=== PATIENT | female | born 1965 | race Two or more races ===

== ENCOUNTER 2019-01-16 18:14 | Emergency (ER) | payer OTHER ==
[2019-01-16 18:21] VITALS: TEMP 98.5; BMI 32.5
[2019-01-16] MEDS ORDERED: SODIUM CHLORIDE 1,000 ML IV ONE (19:55)
--- NOTE | 2019-01-16 20:02 | PDOC ---
History of Present Illness - General Chief Complaint: Lightheaded Stated Complaint: DIZZINESS Time Seen by Provider: 01/16/19 19:27 History Source: Patient Exam Limitations: Language Barrier ([employer] #[id number]) - History of Present Illness Initial Comments: 01/16/19 19:58 HISTORY OF PRESENT ILLNESS: 53-year-old woman past medical history of vertigo presents emergency department for evaluation of room spinning dizziness over the past "months." Patient reports she was seen at [facility] 01/05 and was discharged with prescription for meclizine. She reports meclizine was help controlling her vertigo but when she followed up with her ENT specialist on 01/13 she was told to stop taking the meclizine. Patient reports the dizziness has gotten worse and she ceased the meclizine. Patient also reports now having chest pain for the past 13 days which she describes as an "achy pressure." She denies any shortness of breath or radiation of the pain. Patient did not tell her ENT specialist or the doctors at [facility] when she was evaluated. Patient denies fevers, chills, shortness of breath, abdominal pain, nausea or vomiting. No recent travel or sick contacts. PAST MEDICAL HISTORY: Vertigo SURGICAL HISTORY: Denies ALLERGIES: Shellfish; No known drug allergies REVIEW OF SYSTEMS General/Constitutional: Denies fever or chills. Denies weakness, weight change. HEENT: Denies change in vision. Denies ear pain or discharge. Denies sore throat. Cardiovascular: see HPI Respiratory: Denies cough, wheezing, or hemoptysis. Gastrointestinal: Denies nausea, vomiting, diarrhea or constipation. Denies rectal bleeding. Genitourinary: Denies dysuria, frequency, or change in urination. Musculoskeletal: Denies joint or muscle swelling or pain. Denies neck or back pain. Skin and breasts: Denies rash or easy bruising. Neurologic: See HPI Psychiatric: Denies depression or anxiety. Endocrine: Denies increased thirst. Denies abnormal weight change. Hematologic/Lymphatic: Denies anemia, easy bleeding, or history of blood clots. Allergic/Immunologic: Denies hives or skin allergy. Denies latex allergy. PHYSICAL EXAM General Appearance: Well-appearing, appropriately dressed. No apparent distress , no intoxication. HEENT: EOMI, PERRLA, normal ENT inspection, normal voice, TMs normal, pharynx normal. No conjunctival pallor. No photophobia, scleral icterus. Neck: Supple. Trachea midline. No tenderness, rigidity, carotid bruit, stridor , lymphadenopathy, or thyromegaly. Respiratory/Chest: Lungs CTAB. No shortness of breath, chest tenderness, respiratory distress, accessory muscle use. No crackles, rales, rhonchi, stridor , wheezing, dullness Cardiovascular: RRR. S1, S2. No JVD, murmur, bradycardia, tachycardia. Vascular Pulses: Dorsalis-Pedis (R): 2+, Dorsalis-Pedis (L): 2+ Gastrointestinal/Abdominal: Normal bowel sounds. Abdomen soft, non-distended. No tenderness or rebound tenderness. No organomegaly, pulsatile mass, guarding, hernia, hepatomegaly, splenomegaly. Lymphatic: No adenopathy, tenderness. Musculoskeletal/Extremities: Normal inspection. FROM of all extremities, normal capillary refill. Pelvis Stable. No CVA tenderness. No tenderness to extremities, pedal edema, swelling, erythema or deformity. Integumentary: Appropriate color, dry, warm. No cyanosis, erythema, jaundice or rash Neurologic: physician ophthalmologist II-XII intact. Fully oriented, alert. Appropriate mood/affect. Motor strength 5/5. No appreciable EOM palsy, facial droop or sensory deficit. No nystagmus present. Gait steady. Past History - Past Medical History Allergies/Adverse Reactions: Allergies Allergy/AdvReac Type Severity Reaction Status Date / Time No Known Allergies Allergy Verified 01/16/19 18:21 Home Medications: Ambulatory Orders NK [No Known Home Medication] 01/16/19 COPD: No Disorders: No - Surgical History Cardiac Surgery: No Lung Surgery: No - Immunization History Immunization Up to Date: No - Suicide/Smoking/Psychosocial Hx Smoking History: Never smoked Have you smoked in the past 12 months: No Information on smoking cessation initiated: No Hx Alcohol Use: No Drug/Substance Use Hx: No *Physical Exam - Vital Signs Last Vital Signs Temp Pulse Resp BP Pulse Ox 98.5 F 77 16 169/63 99 01/16/19 18:18 01/16/19 18:18 01/16/19 18:18 01/16/19 18:18 01/16/19 18:18 ED Treatment Course - LABORATORY CBC & Chemistry Diagram: 01/16/19 20:39 01/16/19 20:39 Medical Decision Making - Medical Decision Making 01/16/19 20:02 A/P: 53-year-old woman with chest pain and vertigo Differential diagnosis includes but is not limited to vertigo, ACS, arrhythmia, ICH, occult infection Labs including cardiac profile CT of the head without contrast EKG Chest x-ray Normal saline 1 L bolus Valium 1 mg IV push now Reassess 01/17/19 00:02 CT chest read by imaging motion picture camera lens technician: No intracranial hemorrhages, instructional fluid collections or intra-axial mass lesion. Laboratory testing is unremarkable with an initial troponin of less than 0.02. EKG reviewed by me as interpreted by Dr. Apodaca: Sinus rhythm with rate of 76. NE - 148 ms, QRS 110 ms, QTC 490 ms. No T-wave inversions, ST elevations or ST depressions noted. Patient reports dizziness is improved after receiving IV fluids and Ativan. 01/17/19 01:57 Chest x-rays read by me: Angles clear. Cardiac silhouette is within normal limits. No focal infiltrations or consolidations present. I will discharge the patient home to follow-up with her ENT specialist for continued evaluation of her vertigo. Patient is to follow-up with her primary doctor for reevaluation of chest pain. *DC/Admit/Observation/Transfer Diagnosis at time of Disposition: Vertigo, Atypical chest pain - Discharge Dispostion Disposition: HOME Condition at time of disposition: Stable Decision to Admit order: No - Referrals Referrals: Jennifer Gibson A [Primary Care Provider] - - Patient Instructions Additional Instructions: Drink plenty of fluids. Follow-up with her ENT specialist for reevaluation of vertigo. Make an appointment with her primary doctor for reevaluation of your chest pain. Return to the emergency department for any new or worsening symptoms. Thank you very much for choosing us to provide your emergent health care needs. Beber mucho lquido. Perfecto un seguimiento con whelan especialista en ORL para la reevaluacin del vrtigo. Perfecto donte bari con whelan mdico de cabecera para reevaluar el dolor de pecho. Regrese al departamento de emergencias para cualquier sntoma nuevo o que empeore. Muchas wander por elegirnos para satisfacer jannette necesidades de atencin mdica de emergencia. - Post Discharge Activity
[2019-01-16] MEDS ORDERED: LORazepam 2 MG/ML SDV VIAL ONE (20:52)
[2019-01-16 20:55] LABS: BASO % 0.3 % (0-2.0); EOS % 0.2 % (0-4.5); HEMATOCRIT 41.1 % (32.4-45.2); HEMOGLOBIN 14.1 GM/dL (10.7-15.3); LYMPH % 30.6 % (8-40); MCHC 34.4 g/dl (32.0-36.0); MEAN CELL VOLUME 90.1 fl (80-96); MONO % 6.3 % (3.8-10.2); NEUT % 62.6 % (42.8-82.8); PLATELET COUNT 219 K/MM3 (134-434); RBC 4.55 M/mm3 (3.60-5.2)
[2019-01-16 21:40] LABS: ALBUMIN 4.2 g/dl (3.4-5.0); ALK PHOS 86 U/L (45-117); ANION GAP 5 MMOL/L (8-16); BILIRUBIN,TOTAL 0.3 mg/dL (0.2-1); BLOOD UREA NITROGEN 7 mg/dL (7-18); CALCIUM 9.2 mg/dL (8.5-10.1); CHLORIDE 107 mmol/L (98-107); CO2 29 mmol/L (21-32); CREATININE 0.5 mg/dL (0.55-1.3); GLUCOSE,RANDOM 99 mg/dL (74-106); POTASSIUM 4.8 mmol/L (3.5-5.1); SGOT/AST 48 U/L (15-37); SGPT/ALT 55 U/L (13-61); SODIUM 140 mmol/L (136-145); TOT PROT 7.7 g/dl (6.4-8.2)
[2019-01-16 22:03] LABS: INR 1.05 (0.83-1.09); PROTHROMBIN TIME (PATIENT) 12.4 SEC (9.7-13.0)
--- NOTE | 2019-01-17 00:35 | PDOC ---
*Physical Exam - Vital Signs Last Vital Signs Temp Pulse Resp BP Pulse Ox 98.5 F 77 16 169/63 99 01/16/19 18:18 01/16/19 18:18 01/16/19 18:18 01/16/19 18:18 01/16/19 18:18 ED Treatment Course - LABORATORY CBC & Chemistry Diagram: 01/16/19 20:39 01/16/19 20:39 - ADDITIONAL ORDERS Additional order review: Laboratory Results 01/16/19 01/16/19 20:39 20:39 PT with INR 12.40 INR 1.05 Sodium 140 Potassium 4.8 Chloride 107 Carbon Dioxide 29 Anion Gap 5 L BUN 7 Creatinine 0.5 L Creat Clearance w eGFR 130.08 Random Glucose 99 Calcium 9.2 Total Bilirubin 0.3 AST 48 H ALT 55 Alkaline Phosphatase 86 Creatine Kinase 161 Creatine Kinase Index 0.6 CK-MB (CK-2) < 1.0 Troponin I < 0.02 Total Protein 7.7 Albumin 4.2 01/16/19 20:39 RBC 4.55 MCV 90.1 MCHC 34.4 RDW 13.0 MPV 8.0 Neutrophils % 62.6 Lymphocytes % 30.6 Monocytes % 6.3 Eosinophils % 0.2 Basophils % 0.3 - Medications Given in the ED: ED Medications Discontinued Medications Generic Name Dose Route Start Last Admin Trade Name Freq PRN Reason Stop Dose Admin Sodium Chloride 1,000 mls @ 1,000 mls/hr 01/16/19 19:55 01/16/19 20:59 Normal Saline - IV 01/16/19 20:54 1,000 mls/hr .Q1H ONE Administration Lorazepam 1 mg 01/16/19 19:57 01/16/19 21:00 Ativan Injection - IVPUSH 01/16/19 19:58 1 mg ONCE ONE Administration Medical Decision Making - Medical Decision Making 01/17/19 00:34 Case discussed with ASIA Jimenez Agree with assessment and plan *DC/Admit/Observation/Transfer Diagnosis at time of Disposition: Vertigo - Discharge Dispostion Condition at time of disposition: Stable - Referrals Referrals: Jennifer Gibson [Primary Care Provider] - - Patient Instructions - Post Discharge Activity
[2019-01-17 02:11] VITALS: BP 156/72; PULSE 76
--- NOTE | 2019-01-17 10:39 | EKG ---
Test Reason : Blood Pressure : / mmHG Vent. Rate : 076 BPM Atrial Rate : 076 BPM P-R Int : 148 ms QRS Dur : 110 ms QT Int : 436 ms P-R-T Axes : 051 033 070 degrees QTc Int : 490 ms NORMAL SINUS RHYTHM PROLONGED QT ABNORMAL ECG NO PREVIOUS ECGS AVAILABLE Confirmed by SOCORRO RYDER MD ([id number]) on 01/17/2019 10:39:17 AM Referred By: Confirmed By:SOCORRO RYDER MD
== END 2019-01-17 02:11 | disposition home or self-care (01) ==
LOC: JER 18:14
PROC: 3E0337Z Introduction of Electrolytic and Water Balance Substance into Peripheral Vein, Percutaneous Approach (ICD-10-PCS; principal; 2019-01-16)
PROC: 3E033NZ Introduction of Analgesics, Hypnotics, Sedatives into Peripheral Vein, Percutaneous Approach (ICD-10-PCS; 2019-01-16)
DX: R07.89 Other chest pain (principal); R42 Dizziness and giddiness
CPT/HCPCS: 36415; 70450-TC; 71046-TC-FY; 80053; 82550; 82553; 84484; 85025; 85610; 87086; 93005; 93010; 99282-25; J7030

== ENCOUNTER 2019-01-24 13:34 | Observation (INO) | payer OTHER ==
[2019-01-24 13:42] VITALS: BMI 32.5
--- NOTE | 2019-01-24 16:00 | PDOC ---
History of Present Illness - General Chief Complaint: Chest Pain Stated Complaint: CHEST PAIN History Source: Patient Exam Limitations: No Limitations - History of Present Illness Initial Comments: 53 yo F with a hx of vertigo and anemia presents to the emergency department with chest pain that began at 12 pm suddenly today. Per the patient, she has never had anything like this before. Per the patient, the pain is described as the following: sharp/burning, 10/10, radiates throughout the chest wall, constant. Endorses the following symptoms: nausea (denies vomiting), headache, weakness, SOB, and dizziness (room spinning sensation). Her chest pain did not marli with motrin use and worsenings with exertion and relieves with rest. Denies familial cardiac history and hx of smoking. Denies hx of stress test and echo. Shx: None Allergies: NKDA Meds: Meclizine Social: Denies tobacco, alcohol, and substance abuse. Past History - Past Medical History Allergies/Adverse Reactions: Allergies Allergy/AdvReac Type Severity Reaction Status Date / Time No Known Allergies Allergy Verified 01/16/19 18:21 Home Medications: Ambulatory Orders NK [No Known Home Medication] 01/16/19 COPD: No Disorders: No Other medical history: VERTIGO - Surgical History Cardiac Surgery: No Lung Surgery: No - Immunization History Immunization Up to Date: No - Suicide/Smoking/Psychosocial Hx Smoking History: Never smoked Have you smoked in the past 12 months: No Hx Alcohol Use: No Drug/Substance Use Hx: No Review of Systems - Review of Systems Able to Perform ROS?: Yes Is the patient limited Macedonian proficient: No Constitutional: No: Chills, Diaphoresis, Fever HEENTM: Yes: Blurred Vision. No: Eye Pain, Recent change in vision, Ear Pain, Nose Pain, Throat Pain, Mouth Pain Respiratory: Yes: Shortness of Breath. No: Cough, SOB with Exertion, Hemoptysis Cardiac (ROS): Yes: Chest Pain. No: Lightheadedness, Palpitations, Syncope ABD/GI: Yes: Nausea. No: Constipated, Diarrhea, Poor Appetite, Poor Fluid Intake, Rectal Bleeding, Vomiting, Tarry Stools : No: Burning, Dysuria, Hematuria, Incontinence Musculoskeletal: No: Back Pain, Joint Pain, Neck Pain Integumentary: No: Bruising, Erythema, Sweating Neurological: Yes: Headache, Dizziness. No: Numbness, Tingling, Tremors Psychiatric: No: Change in Appetite Endocrine: No: Unexplained Weight Gain Hematologic/Lymphatic: Yes: Anemia *Physical Exam - Vital Signs Last Vital Signs Temp Pulse Resp BP Pulse Ox 98.2 F 84 18 183/81 H 99 01/24/19 13:39 01/24/19 13:39 01/24/19 13:39 01/24/19 13:39 01/24/19 13:39 - Physical Exam General Appearance: Yes: Nourished, Appropriately Dressed, Obese. No: Apparent Distress, Intoxicated HEENT: positive: EOMI, ARUN, Normal Voice, Symmetrical, Pharynx Normal, Hearing Grossly Normal. negative: Pale Conjunctivae, Scleral Icterus (R), Scleral Icterus (L), Muffled/Hoarse voice, Pharyngeal Erythema, Tonsillar Exudate, Tonsillar Erythema, Excessive drooling Neck: positive: Trachea midline, Supple. negative: Tender, Lymphadenopathy (R) , Lymphadenopathy (L), Tender lateral, Tender midline Respiratory/Chest: positive: Chest Tender (sternal), Lungs Clear, Normal Breath Sounds. negative: Respiratory Distress, Accessory Muscle Use, Crackles, Rales, Rhonchi, Stridor, Wheezing, Hyperresonant Cardiovascular: positive: Regular Rhythm, Regular Rate, S1, S2. negative: Systolic Murmur Gastrointestinal/Abdominal: positive: Normal Bowel Sounds, Flat, Soft. negative : Tender, Distended, Guarding, Rebound Lymphatic: negative: Adenopathy Musculoskeletal: positive: Normal Inspection. negative: CVA Tenderness, Vertebral Tenderness Extremity: positive: Normal Capillary Refill, Normal Inspection, Normal Range of Motion. negative: Tender, Swelling, Calf Tenderness Integumentary: positive: Normal Color, Dry, Warm Neurologic: positive: Fully Oriented, Alert, Normal Mood/Affect, Normal Response , Motor Strength 5/5. negative: pegger dobby looms II-XII NML intact (asymmetric smile), Sensory Deficit Heart Score/ECG Review - History History: Moderately suspicious - Electrocardiogram EKG: Normal - Age Age: 45-65 - Risk Factors Risk Factors Heart Score: Yes Hx Obesity Based on the list above the patient has:: 1-2 risk factors - Troponin Troponin: </= normal limit - Score Heart Score - Total: 3 - ECG Intrepretation Comment:: 01/24/19 16:58 ventricular rate is 86 bpm, MA is 136 ms, QRS 106ms, and QTc is [address] elevations or depressions. TWI in avL that was present 1 week ago. ED Treatment Course - LABORATORY CBC & Chemistry Diagram: 01/25/19 06:00 01/25/19 06:00 Medical Decision Making - Medical Decision Making 01/24/19 16:59 53 yo F with a hx of vertigo and anemia presents to the emergency department with chest pain that began at 12 pm suddenly today. Initial vitals; Initial Vital Signs Temp Pulse Resp BP Pulse Ox 98.2 F 84 18 183/81 H 99 01/24/19 13:39 01/24/19 13:39 01/24/19 13:39 01/24/19 13:39 01/24/19 13:39 Work up: ddx: *DC/Admit/Observation/Transfer - Referrals - Patient Instructions - Post Discharge Activity
[2019-01-24] MEDS ORDERED: SODIUM CHLORIDE 1,000 ML IV STA (16:41)
[2019-01-24] MEDS ORDERED: ACETAMINOPHEN 325 MG TABLET (FP) PO ONE (16:41)
[2019-01-24 17:19] LABS: BASO % 0.4 % (0-2.0); EOS % 0.1 % (0-4.5); HEMATOCRIT 43.6 % (32.4-45.2); HEMOGLOBIN 15.1 GM/dL (10.7-15.3); LYMPH % 24.8 % (8-40); MCH 30.9 pg (25.7-33.7); MCHC 34.7 g/dl (32.0-36.0); MEAN PLT VOLUME 7.8 fl (7.5-11.1); NEUT % 69.7 % (42.8-82.8); PLATELET COUNT 218 K/MM3 (134-434); RDW 13.4 % (11.6-15.6); WHITE BLOOD COUNT 6.4 K/mm3 (4.0-10.0)
[2019-01-24] MEDS ORDERED: ACETAMINOPHEN 325 MG TABLET (FP) ONE ×2 (17:37→22:22)
[2019-01-24] MEDS ORDERED: NITROGLYCERIN SUBLINGUAL 1/150 0.4 MG TAB SL ONE ×2 (17:40→18:42)
[2019-01-24] MEDS ORDERED: ASPIRIN 81 MG CHEWABLE TABLETS PO ONE (17:40)
[2019-01-24] MEDS ORDERED: FAMOTIDINE 20 MG/50 ML IVPB 20 MG/50 ML MG IVPB ONE ×2 (17:46→18:03)
[2019-01-24] MEDS ORDERED: MAG HYDROX/AL HYDROX/SIMETH -MYLANTA- ORAL SUSPENSION PO ONE (17:46)
--- NOTE | 2019-01-24 17:50 | PDOC ---
Documentation entered by Shanna Painter SCRIBE, acting as scribe for Bong Rivera MD. Bong Rivera MD: This documentation has been prepared by the yadyeInocencio Amanda, SCRIBE, under my direction and personally reviewed by me in its entirety. I confirm that the documentation accurately reflects all work, treatment, procedures, and medical decision making performed by me. Attending Attestation - Resident Resident Name: Willy Kennedy - [facility] HPI: 01/24/19 16:22 The patient is a 53-year-old female with a significant past medical history of vertigo and anemia who presents emergency department for evaluation of sudden onset of chest pain at 12PM with associated headache, dizziness, SOB, and difficulty ambulating today. She states she took Motrin earlier todaywithout significant relief of her chest pain. Allergies: NKDA Surgical Hx: None reported Social Hx: Denies tobacco or ETOH PCP: Dr. Jennifer Gibson - Physicial Exam PE: 01/24/19 17:48 Patient is awake and alert, obese, in no distress Normocephalic and atraumatic PERRLA, EOMI, no nystagmus CTA RRR Abdomen soft, nontender, nondistended Cranial nerves II through XII are grossly intact; there is minimal right-sided nasolabial fold flattening; motor is 5 of 54 there is no pronation drift; there is no dysmetria, [id number] is normal bilaterally; - Medical Decision Making 01/24/19 17:49 53-year-old Yoruba-speaking female presents with recurrent vertigo, mild headache and substernal chest pain. Vertigo is likely peripheral in nature. Will treat with meclizine and will escalate to Reglan if unsuccessful. I do not suspect aortic dissection at this time. Patient is low probability for PE by Declan and d-dimer will be obtained. We'll administer aspirin, sublingual nitroglycerin for pain control as well as H2 blockers and Maalox. EKG shows no evidence of acute ischemia, isolated inverted T-wave in aVL is noted and was present on the EKG from one week prior. Will reassess. 01/24/19 19:17 Patient's pain improved minimally after administration of nitroglycerin, H2 blockers and Maalox. Repeat EKG shows no evidence of dynamic EKG changes. First set of cardiac enzymes is negative. D-dimer is below the threshold limit. Awaiting chest x-ray. Given the heart score 3 and poor likelihood of follow-up, will place on telemetry for serial cardiac enzymes and cardiac evaluation. Heart Score/ECG Review - ECG Intrepretation Comment:: 01/24/19 16:45 EKG was read by Dr. Rivera at this time revealing Normal Sinus Rhythm. Vent Rate: 86 bpm VA INterval: 136ms QTc: 459ms
[2019-01-24 17:54] LABS: ALBUMIN 4.6 g/dl (3.4-5.0); ALK PHOS 83 U/L (45-117); ANION GAP 6 MMOL/L (8-16); BILIRUBIN,TOTAL 0.3 mg/dL (0.2-1); BLOOD UREA NITROGEN 9 mg/dL (7-18); CALCIUM 9.4 mg/dL (8.5-10.1); CHLORIDE 106 mmol/L (98-107); CO2 29 mmol/L (21-32); CREATININE 0.6 mg/dL (0.55-1.3); GLUCOSE,RANDOM 104 mg/dL (74-106); SGOT/AST 24 U/L (15-37); SGPT/ALT 51 U/L (13-61); SODIUM 141 mmol/L (136-145); TOT PROT 8.2 g/dl (6.4-8.2)
[2019-01-24] MEDS ORDERED: NITROGLYCERIN SUBLINGUAL 1/150 0.4 MG TAB ONE ×2 (18:02→18:45)
[2019-01-24] MEDS ORDERED: MAG HYDROX/AL HYDROX/SIMETH 30 ML UNIT-DOSE CUP ONE (18:02)
[2019-01-24] MEDS ORDERED: ASPIRIN 81 MG CHEWABLE TABLETS ONE (18:02)
[2019-01-24 18:38] LABS: INR 1.12 (0.83-1.09); PROTHROMBIN TIME (PATIENT) 13.2 SEC (9.7-13.0)
[2019-01-24] MEDS ORDERED: METOCLOPRAMIDE HCL INJECTION 10 MG/2 ML VIAL IVPUSH ONE (18:40)
[2019-01-24 18:41] LABS: EPI CELLS 1.1 /HPF (0-5/HPF); PH,URINE >= 9.0 (5.0-8.0); URINE APPEARANCE CLEAR; URINE BACTERIA 38.8 /hpf (NEGATIVE); URINE BILIRUBIN NEGATIVE (NEGATIVE); URINE CASTS 1 /lpf (0-8); URINE COLOR YELLOW; URINE GLUCOSE (UA) NEGATIVE (NEGATIVE); URINE KETONE NEGATIVE (NEGATIVE); URINE LEUK ESTERASE TRACE (NEGATIVE); URINE NITRITE NEGATIVE (NEGATIVE); URINE PROTEIN NEGATIVE (NEGATIVE); URINE RBC 4 /hpf (0-4); URINE UROBILINOGEN 0.2 mg/dL (0.2-1.0); URINE WBC 1 /hpf (0-5)
[2019-01-24] MEDS ORDERED: METOCLOPRAMIDE HCL INJECTION 10 MG/2 ML VIAL ONE (19:42)
--- NOTE | 2019-01-24 20:59 | HP ---
CHIEF COMPLAINT: Chest Pain, Dizziness PCP: Dr. Jennifer Gibson HISTORY OF PRESENT ILLNESS: This is a 53 y/o woman with a PMHx of Vertigo. Who presents to the ED with midsternal chest pain, N/V, dizziness x today. Patient is Omani speaking, [employer] line used #[id number], Kim. Patient reports that when she gets "vertigo spells" she has CP with it. The patient describes the pain as sharp- non radiating, with epigastric pain and belching. She reports coming to the ED for her Vertigo and was given Meclizine Rx which her Neurologist told her to stop taking, because it was making her dizzy. She reports having an appointment next week with the Neurologist for f/u. Patient denies heavy lifting or recent strenuous exercise. Patient denies fever , chills, cough, palpitations, diarrhea, constipation, dysuria. ER course was notable for: (1) Troponin I < 0.02 (2) EKG- NSR with T wave inversions AVL, Inferior Infarct age undetermined (3) Chest Xray image- no infiltrate no effusion Recent Travel: None PAST MEDICAL HISTORY: Vertigo PAST SURGICAL HISTORY: Social History: Smoking: Denies Alcohol: Denies Drugs: Denies Family History: Non-contributory Allergies No Known Allergies Allergy (Verified 01/16/19 18:21) HOME MEDICATIONS: Home Medications Medication Instructions Recorded NK [No Known Home Medication] 01/16/19 REVIEW OF SYSTEMS CONSTITUTIONAL: Absent: fever, chills, diaphoresis, generalized weakness, malaise, loss of appetite, weight change HEENT: Absent: rhinorrhea, nasal congestion, throat pain, throat swelling, difficulty swallowing, mouth swelling, ear pain, eye pain, visual changes CARDIOVASCULAR: chest pain, Absent: syncope, palpitations, irregular heart rate, lightheadedness, peripheral edema RESPIRATORY: shortness of breath Absent: cough, dyspnea with exertion, orthopnea, wheezing, stridor, hemoptysis GASTROINTESTINAL: epigastric pain, nausea, vomiting Absent: abdominal distension, diarrhea, constipation, melena, hematochezia GENITOURINARY: Absent: dysuria, frequency, urgency, hesitancy, hematuria, flank pain, genital pain MUSCULOSKELETAL: Absent: myalgia, arthralgia, joint swelling, back pain, neck pain SKIN: Absent: rash, itching, pallor HEMATOLOGIC/IMMUNOLOGIC: Absent: easy bleeding, easy bruising, lymphadenopathy, frequent infections ENDOCRINE: Absent: unexplained weight gain, unexplained weight loss, heat intolerance, cold intolerance NEUROLOGIC: dizziness Absent: headache, focal weakness or paresthesias, unsteady gait, seizure, mental status changes, bladder or bowel incontinence PSYCHIATRIC: Absent: anxiety, depression, suicidal or homicidal ideation, hallucinations. PHYSICAL EXAMINATION Vital Signs - 24 hr 01/24/19 01/24/19 13:39 18:43 Temperature 98.2 F Pulse Rate 84 Pulse Rate [ 72 Left] Respiratory 18 16 Rate Blood Pressure 183/81 H Blood Pressure 133/74 [Arm] O2 Sat by Pulse 99 99 Oximetry (%) GENERAL: Awake, alert, and fully oriented, in no acute distress. HEAD: Normal with no signs of trauma. EYES: Pupils equal, round and reactive to light, extraocular movements intact, sclera anicteric, conjunctiva clear. No lid lag. EARS, NOSE, THROAT: Ears normal, nares patent, oropharynx clear without exudates. Moist mucous membranes. NECK: Normal range of motion, supple without lymphadenopathy, JVD, or masses. LUNGS: Breath sounds equal, clear to auscultation bilaterally. No wheezes, and no crackles. No accessory muscle use. HEART: Regular rate and rhythm, normal S1 and S2 without murmur, rub or gallop. CP is reproducible upon palpation ABDOMEN: Soft, nontender, not distended, normoactive bowel sounds, no guarding, no rebound, no masses. No hepatomegaly or splenomegaly. MUSCULOSKELETAL: Normal range of motion at all joints. No bony deformities or tenderness. No CVA tenderness. UPPER EXTREMITIES: 2+ pulses, warm, well-perfused. No cyanosis. No clubbing. No peripheral edema. LOWER EXTREMITIES: 2+ pulses, warm, well-perfused. No calf tenderness. No peripheral edema. NEUROLOGICAL: Cranial nerves II-XII intact. Normal speech. Gait not observed. PSYCHIATRIC: Cooperative. Good eye contact. Appropriate mood and affect. SKIN: Warm, dry, normal turgor, no rashes or lesions noted, normal capillary refill. Laboratory Results - last 24 hr 01/24/19 01/24/19 01/24/19 17:10 17:10 17:10 WBC 6.4 RBC 4.90 Hgb 15.1 Hct 43.6 MCV 89.0 MCH 30.9 MCHC 34.7 RDW 13.4 Plt Count 218 MPV 7.8 Absolute Neuts (auto) 4.4 Neutrophils % 69.7 Lymphocytes % 24.8 Monocytes % 5.0 Eosinophils % 0.1 Basophils % 0.4 Nucleated RBC % 0 PT with INR 13.20 H INR 1.12 H D-Dimer < 215 Sodium Potassium Chloride Carbon Dioxide Anion Gap BUN Creatinine Creat Clearance w eGFR Random Glucose Calcium Total Bilirubin AST ALT Alkaline Phosphatase Creatine Kinase Troponin I Total Protein Albumin Serum , Qual Urine Color Urine Appearance Urine pH Ur Specific [place] Urine Protein Urine Glucose (UA) Urine Ketones Urine Blood Urine Nitrite Urine Bilirubin Urine Urobilinogen Ur Leukocyte Esterase Urine WBC (Auto) Urine RBC (Auto) Urine Casts (Auto) U Epithel Cells (Auto) Urine Bacteria (Auto) 01/24/19 01/24/19 01/24/19 17:10 17:10 17:49 WBC RBC Hgb Hct MCV MCH MCHC RDW Plt Count MPV Absolute Neuts (auto) Neutrophils % Lymphocytes % Monocytes % Eosinophils % Basophils % Nucleated RBC % PT with INR INR D-Dimer Sodium 141 Potassium 4.0 Chloride 106 Carbon Dioxide 29 Anion Gap 6 L BUN 9 Creatinine 0.6 Creat Clearance w eGFR 105.40 Random Glucose 104 Calcium 9.4 Total Bilirubin 0.3 AST 24 ALT 51 Alkaline Phosphatase 83 Creatine Kinase 103 Troponin I < 0.02 Total Protein 8.2 Albumin 4.6 Serum , Qual Negative Urine Color Yellow Urine Appearance Clear Urine pH >= 9.0 H Ur Specific [place] 1.008 L Urine Protein Negative Urine Glucose (UA) Negative Urine Ketones Negative Urine Blood Negative Urine Nitrite Negative Urine Bilirubin Negative Urine Urobilinogen 0.2 Ur Leukocyte Esterase Trace Urine WBC (Auto) 1 Urine RBC (Auto) 4 Urine Casts (Auto) 1 U Epithel Cells (Auto) 1.1 Urine Bacteria (Auto) 38.8 ASSESSMENT/PLAN: This is a 53 y/o woman PMHx of Vertigo. Placed in Telemetry Observation for Atypical Chest Pain, Vertigo for further evaluation of their emergent condition Plan: See Problem List FEN PO fluids as tolerated Replete lytes prn Low Na Diet DVT ppx OOB SCDs Consider AC if LOS > 48 hrs Dispo: Observation Problem List - Problem (1) Atypical chest pain Assessment/Plan: HEART Score 3 Continue cardiac monitoring Serial Enzymes neg x1, will trend Continue Asa Appreciate Cardiology consult Echo NTG sl prn Code(s): R07.89 - OTHER CHEST PAIN (2) Vertigo Assessment/Plan: Likely flare Reglan given in ED Meclizine prn Fall Precautions Code(s): R42 - DIZZINESS AND GIDDINESS Visit type - Emergency Visit Emergency Visit: Yes ED Registration Date: 01/24/19 Care time: The patient presented to the Emergency Department on the above date and was hospitalized for further evaluation of their emergent condition. - New Patient This patient is new to me today: Yes Date on this admission: 01/24/19 - Critical Care Critical Care patient: No
[2019-01-24] MEDS: DEXTROSE 5%-0.45% SALINE 1,000 ML IV SCH (22:31)
[2019-01-25 07:04] LABS: BASO % 0.3 % (0-2.0); EOS % 0.5 % (0-4.5); HEMATOCRIT 39.1 % (32.4-45.2); HEMOGLOBIN 13.8 GM/dL (10.7-15.3); LYMPH % 37.4 % (8-40); MCH 31.6 pg (25.7-33.7); MCHC 35.3 g/dl (32.0-36.0); MEAN CELL VOLUME 89.6 fl (80-96); MEAN PLT VOLUME 7.8 fl (7.5-11.1); MONO % 9.2 % (3.8-10.2); NEUT % 52.6 % (42.8-82.8); PLATELET COUNT 202 K/MM3 (134-434); RBC 4.36 M/mm3 (3.60-5.2); RDW 13.2 % (11.6-15.6); WHITE BLOOD COUNT 4.8 K/mm3 (4.0-10.0)
[2019-01-25 07:37] LABS: ANION GAP 6 MMOL/L (8-16); BLOOD UREA NITROGEN 10 mg/dL (7-18); CALCIUM 9.1 mg/dL (8.5-10.1); CHLORIDE 106 mmol/L (98-107); CO2 30 mmol/L (21-32); CREATININE 0.6 mg/dL (0.55-1.3); GLUCOSE,RANDOM 90 mg/dL (74-106); MAGNESIUM 2.4 mg/dL (1.8-2.4); PHOSPHOROUS 4.6 mg/dL (2.5-4.9); SODIUM 142 mmol/L (136-145)
[2019-01-25] MEDS ORDERED: ASPIRIN 81 MG CHEWABLE TABLETS ONE (09:27)
[2019-01-25] MEDS ORDERED: FAMOTIDINE 20 MG/50 ML IVPB 20 MG/50 ML MG IVPB ONE ×2 (09:28→21:33)
[2019-01-25] MEDS ORDERED: MECLIZINE HCL 25 MG TABLET (FP) ONE (09:39)
[2019-01-25] MEDS: ASPIRIN 81 MG CHEWABLE TABLETS PO SCH (09:44)
[2019-01-25] MEDS: MECLIZINE HCL 25 MG TABLET (FP) PO PRN (09:44)
[2019-01-25] MEDS: FAMOTIDINE 20 MG/50 ML IVPB 20 MG/50 ML MG IVPB SCH ×2 (09:44→21:41)
--- NOTE | 2019-01-25 12:43 | CON.CARD ---
Consult Consult Specialty:: Cardiology Referred by:: Dr. Mix Reason for Consultation:: Chest pain - History of Present Illness Chief Complaint: Chest pain History of Present Illness: 53 year-old woman with a PMHx of vertigo and anemia presented to ED 01/24/2019 with chest pain. The patient developed midsternal/left sternal chest pain with N/V, dizziness since 12 PM 01/24/2019. The pain is sharp, non-radiating with local tenderness along left sternal border, epigastric pain and belching. She reports that when she gets "vertigo spells" with chest pain. She denies SOB, palpitation, syncope , near syncope, edema, orthopnea or PND. Her chest pain persists for over 24 hours with some improvement. Troponin is negative. ECG is normal without ischemic changes. Chest Xray image- no infiltrate no effusion - History Source History Provided By: Patient, Medical Record Limitations to Obtaining History: No Limitations - Alcohol/Substance Use Hx Alcohol Use: No - Smoking History Smoking history: Never smoked Have you smoked in the past 12 months: No Home Medications - Allergies Allergies/Adverse Reactions: Allergies Allergy/AdvReac Type Severity Reaction Status Date / Time No Known Allergies Allergy Verified 01/16/19 18:21 - Home Medications Home Medications: Ambulatory Orders NK [No Known Home Medication] 01/16/19 Review of Systems - Review of Systems Cardiovascular: reports: Chest Pain Gastrointestinal: reports: Abdominal Pain, Bloating Neurological: reports: Dizziness Vital Signs: Vital Signs Temperature 98.1 F 01/25/19 06:12 Pulse Rate 75 01/25/19 06:12 Respiratory Rate 16 01/25/19 00:53 Blood Pressure 103/62 01/25/19 06:12 O2 Sat by Pulse Oximetry (%) 98 01/25/19 06:12 Constitutional: Yes: Well Nourished, No Distress, Calm Eyes: Yes: WNL HENT: Yes: WNL Neck: Yes: WNL Respiratory: Yes: Regular, CTA Bilaterally Gastrointestinal: Yes: Normal Bowel Sounds, Soft Renal/: Yes: WNL Cardiovascular: Yes: Regular Rate and Rhythm JVD: No Carotid Bruit: No PMI: Non-Displaced Heart Sounds: Yes: S1, S2 Musculoskeletal: Yes: Other (Tenderness of palpation along left sternal border.) - Other Data Labs, Other Data: CBC, BMP 01/25/19 06:00 01/25/19 06:00 INR, PTT INR 1.12 (0.83-1.09) H 01/24/19 17:10 Troponin, BNP 01/24/19 01/24/19 01/25/19 17:10 20:29 06:00 Troponin I < 0.02 < 0.02 < 0.02 01/25/19 11:30 Troponin I < 0.02 Troponin, BNP 01/24/19 01/24/19 01/25/19 17:10 20:29 06:00 Troponin I < 0.02 < 0.02 < 0.02 01/25/19 11:30 Troponin I < 0.02 Imaging - Results EKG: Image Reviewed (NSR. Normal ST-T. Normal ECG.) Assessment/Plan 53 year-old woman with a PMHx of vertigo and anemia presented to ED 01/24/2019 with atypical reproducible chest pain with local tenderness. Troponin is negative. ECG is normal without ischemic changes. Atypical chest pain, likely due to costochondritis, NOT acute coronary syndrome. The patient has no risk factors of CAD. Trial of Naproxen for several days. No further cardiac test indicated at this time. Outpatient cardiac follow up with Dr. Del Toro if chest pain persists after trial of Naproxen. Please call us for reconsult as needed.
[2019-01-25] MEDS ORDERED: ACETAMINOPHEN 325 MG TABLET (FP) ONE (12:45)
[2019-01-25] MEDS: ACETAMINOPHEN 325 MG TABLET (FP) PO PRN (12:46)
--- NOTE | 2019-01-25 15:10 | EKG ---
Test Reason : Blood Pressure : / mmHG Vent. Rate : 073 BPM Atrial Rate : 073 BPM P-R Int : 154 ms QRS Dur : 102 ms QT Int : 440 ms P-R-T Axes : 034 006 077 degrees QTc Int : 484 ms NORMAL SINUS RHYTHM INFERIOR INFARCT , AGE UNDETERMINED ABNORMAL ECG WHEN COMPARED WITH ECG OF 24-JAN-2019 13:28, NO SIGNIFICANT CHANGE WAS FOUND Confirmed by RITA HERNANDEZ MD ([id number]) on 01/25/2019 3:10:06 PM Referred By: Confirmed By:RITA HERNANDEZ MD
--- NOTE | 2019-01-25 15:14 | EKG ---
Test Reason : Blood Pressure : / mmHG Vent. Rate : 086 BPM Atrial Rate : 086 BPM P-R Int : 136 ms QRS Dur : 106 ms QT Int : 384 ms P-R-T Axes : 058 039 076 degrees QTc Int : 459 ms NORMAL SINUS RHYTHM NORMAL ECG WHEN COMPARED WITH ECG OF 16-JAN-2019 21:14, NO SIGNIFICANT CHANGE WAS FOUND Confirmed by RITA HERNANDEZ MD ([id number]) on 01/25/2019 3:13:29 PM Referred By: Confirmed By:RITA HERNANDEZ MD
[2019-01-25] MEDS: DEXTROSE 5%-0.45% SALINE 1,000 ML IV SCH (21:41)
--- NOTE | 2019-01-25 22:29 | PN ---
Progress Note, Physician Chief Complaint: Chest Pain Dizziness History of Present Illness: Previous notes and events reviewed awake and alert NAD complain of dizziness and unsteady gait denies chest pain or SOB - Current Medication List Current Medications: Active Medications Acetaminophen (Tylenol -) 650 mg PO Q6H PRN PRN Reason: PAIN LEVEL 1-5 Last Admin: 01/25/19 12:46 Dose: 650 mg Aspirin (Asa -) 81 mg PO DAILY COUNTS INCLUDE 234 BEDS AT THE [facility] Last Admin: 01/25/19 09:44 Dose: 81 mg Dextrose/Sodium Chloride (D5-1/2ns -) 1,000 mls @ 75 mls/hr IV ASDIR COUNTS INCLUDE 234 BEDS AT THE [facility] Last Admin: 01/25/19 21:41 Dose: 75 mls/hr Famotidine/Sodium Chloride (Pepcid 20 Mg Premixed Ivpb -) 20 mg in 50 mls @ 100 mls/hr IVPB BID COUNTS INCLUDE 234 BEDS AT THE [facility] Last Admin: 01/25/19 21:41 Dose: 100 mls/hr Meclizine HCl (Antivert -) 25 mg PO Q6H PRN PRN Reason: VERTIGO Last Admin: 01/25/19 09:44 Dose: 25 mg Ondansetron HCl (Zofran Injection) 4 mg IVPUSH Q6H PRN PRN Reason: NAUSEA AND/OR VOMITING - Objective Vital Signs: Vital Signs Temperature 98.6 F 01/25/19 13:34 Pulse Rate 99 H 01/25/19 13:34 Respiratory Rate 19 01/25/19 13:34 Blood Pressure 141/69 01/25/19 13:34 O2 Sat by Pulse Oximetry (%) 100 01/25/19 13:34 Constitutional: Yes: No Distress, Calm Eyes: Yes: Conjunctiva Clear HENT: Yes: Atraumatic Cardiovascular: Yes: Regular Rate and Rhythm Respiratory: Yes: Regular, CTA Bilaterally Gastrointestinal: Yes: Normal Bowel Sounds, Soft Musculoskeletal: Yes: Muscle Weakness Extremities: Yes: WNL Edema: No Neurological: Yes: Alert, Oriented Psychiatric: Yes: Alert, Oriented Labs: CBC, BMP 01/25/19 06:00 01/25/19 06:00 INR, PTT INR 1.12 (0.83-1.09) H 01/24/19 17:10 - ....Imaging Chest X-ray: Report Reviewed EKG: Report Reviewed Problem List - Problems (1) Atypical chest pain Assessment/Plan: -troponin neg -cardiology on board Code(s): R07.89 - OTHER CHEST PAIN (2) Vertigo Assessment/Plan: -Meclizine -Head CT scan Code(s): R42 - DIZZINESS AND GIDDINESS Assessment/Plan see problem list dvt ppx if head CT scan negative d/c in AM
[2019-01-26] MEDS: ACETAMINOPHEN 325 MG TABLET (FP) PO PRN ×2 (09:17→23:10)
[2019-01-26] MEDS: ASPIRIN 81 MG CHEWABLE TABLETS PO SCH (09:17)
[2019-01-26] MEDS: MECLIZINE HCL 25 MG TABLET (FP) PO PRN (09:17)
[2019-01-26] MEDS: FAMOTIDINE 20 MG/50 ML IVPB 20 MG/50 ML MG IVPB SCH (09:20)
--- NOTE | 2019-01-26 11:11 | PN ---
Progress Note, Physician History of Present Illness: DIZZINESS FEELS UNSTEADY - Current Medication List Current Medications: Active Medications Acetaminophen (Tylenol -) 650 mg PO Q6H PRN PRN Reason: PAIN LEVEL 1-5 Last Admin: 01/26/19 09:17 Dose: 650 mg Aspirin (Asa -) 81 mg PO DAILY [facility] Last Admin: 01/26/19 09:17 Dose: 81 mg Dextrose/Sodium Chloride (D5-1/2ns -) 1,000 mls @ 75 mls/hr IV ASDIR [facility] Last Admin: 01/25/19 21:41 Dose: 75 mls/hr Famotidine/Sodium Chloride (Pepcid 20 Mg Premixed Ivpb -) 20 mg in 50 mls @ 100 mls/hr IVPB BID [facility] Last Admin: 01/26/19 09:20 Dose: 100 mls/hr Meclizine HCl (Antivert -) 25 mg PO Q6H PRN PRN Reason: VERTIGO Last Admin: 01/26/19 09:17 Dose: 25 mg Ondansetron HCl (Zofran Injection) 4 mg IVPUSH Q6H PRN PRN Reason: NAUSEA AND/OR VOMITING - Objective Vital Signs: Vital Signs Temperature 98.2 F 01/26/19 06:00 Pulse Rate 55 L 01/26/19 06:00 Respiratory Rate 18 01/26/19 06:00 Blood Pressure 121/56 L 01/26/19 06:00 O2 Sat by Pulse Oximetry (%) 98 01/26/19 01:24 Cardiovascular: Yes: Regular Rate and Rhythm Respiratory: Yes: Regular, CTA Bilaterally Gastrointestinal: Yes: Normal Bowel Sounds, Soft Labs: CBC, BMP 01/25/19 06:00 01/25/19 06:00 INR, PTT INR 1.12 (0.83-1.09) H 01/24/19 17:10 Problem List - Problems (1) Atypical chest pain Assessment/Plan: CE NEGATIVE CARDIO CONSULT NOTED CTA Code(s): R07.89 - OTHER CHEST PAIN (2) Vertigo Assessment/Plan: MECLIZINE NEURO CONSULT Code(s): R42 - DIZZINESS AND GIDDINESS
[2019-01-26] MEDS: MECLIZINE HCL 25 MG TABLET (FP) PO SCH ×2 (17:34→23:09)
[2019-01-26] MEDS: RANITIDINE HCL 150 MG TABLET (FP) PO SCH (21:45)
[2019-01-27] MEDS: MECLIZINE HCL 25 MG TABLET (FP) PO SCH (05:31)
--- NOTE | 2019-01-27 08:45 | DS ---
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 bike shop manager--d/w pt) Labs: CBC, BMP 01/25/19 06:00 01/25/19 06:00 Discharge Summary Reason For Visit: CHEST PAIN Hospital Course: - Problems (1) Atypical chest pain Assessment/Plan: CE NEGATIVE-Probably muscular CARDIO CONSULT NOTED CTA pending--if negative will dc home with outpatient follow up Code(s): R07.89 - OTHER CHEST PAIN (2) Vertigo Assessment/Plan: MECLIZINE NEURO CONSULT ENT follow up as outpatient Code(s): R42 - DIZZINESS AND GIDDINESS - Instructions - Home Medications Comprehensive Discharge Medication List: Ambulatory Orders Acetaminophen [Tylenol .Regular Strength -] 650 mg PO Q6H PRN tablet 01/27/19 Aspirin [ASA -] 81 mg PO DAILY tab.chew 01/27/19 Meclizine HCl [Antivert -] 25 mg PO Q6HPO #40 tablet 01/27/19 Ranitidine [Zantac -] 150 mg PO BID #60 tablet 01/27/19
[2019-01-27] MEDS: ASPIRIN 81 MG CHEWABLE TABLETS PO SCH (09:30)
[2019-01-27] MEDS: RANITIDINE HCL 150 MG TABLET (FP) PO SCH ×2 (09:30→21:13)
[2019-01-27] MEDS: ONDANSETRON 4 MG/2 ML VIAL IVPUSH PRN (10:35)
[2019-01-27] MEDS ORDERED: SUMATRIPTAN SUCCINATE 6 MG/0.5 ML VIAL SQ ONE (10:55)
--- NOTE | 2019-01-27 11:16 | CONSULT ---
Consult - text type - Consultation Consultation Note: NEUROLOGY CONSULT APPRECIATED: This 53 yo F RH single woman lives with her 20 year old daughter. No sig PMH. No menopausal x 1 year. Reports rare headaches when younger that were "mild" in nature. Gradually increasing MENARD's over the last year. Now with one month daily headaches with "pounding" in B/L occipital region w photophonia, phonophobia, n/v, kinesiophobia, dizziness and ringing in the ears. Has required multiple hospital admissions to [facility] and now [facility] and provided meclizine with no relief and reports it made her "hallucinate." Saw ENT Dr. Menendez who performed audiology and was told her hearing was "fine." Taking tylenol on daily basis with no relief of symptoms. ++FH of daughter with headaches ROS significant for frequent awakenings due to "cramps" in the knee, improved with walking x 1 year. Also recurrent atypical chest pains involving the whole chest, worse in afternoon hours. Denies bruxism. Head CT (reviewed): essentially normal study. LAVINIA: 190 lbs. Cor reg. No bruit. Neck supple. Neuro: Mentation/Speech: Ox [facility]. January [id number]. TRUMP CNII-CNXII: EOM without nystagmus. Full barbour. No facial. Motor: No drift. Strength nl. Reflexes normal. Toes downgoing. Coordination: No FTN dystaxia. Sensation: Normal. Romberg - Gait: Normal. Impression: Normal examination Migraine Headaches now Chronic daily headache syndrome (CDHS) associated with Tylenol overuse and analgesic-rebound headaches. 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 Nocturnal knee pain may be due to of Restless Limbs Syndrome ( RLS) Suggest: Review previous neuroimaging at [facility] and consultation with ENT Pt given Sumatriptan 6 mg sq x 1 with excellent resolution of headache. Start topiramate 25 mg BID x 1 week, then increase to 50 mg BID Stop meclizine, tylenol and NSAID's as discussed with patient- Use Sumatriptan 50-100 mg PRN recurrent headaches. Neuro f/u as out-patient for follow-up for migraines and RLS Thank you very much, Callum Zarate MD
--- NOTE | 2019-01-27 16:08 | ECHO ---
Name: ESTELLA CASTELLANO Exam:Adult Echocardiogram Study Date: 01/27/2019 11:50 AM Age: 53 yrs Reason For Study: Chest pain Height: 64 in Weight: 190 lb BSA: 1.9 m2 MMode/2D Measurements & Calculations IVSd: 0.93 cm Ao root diam: 3.1 cm LVIDd: 5.3 cm LA dimension: 3.3 cm LVIDs: 3.3 cm LVPWd: 0.91 cm EDV(Teich): 132.9 ml LVOT diam: 2.1 cm ESV(Teich): 44.4 ml Doppler Measurements & Calculations MV E max jose: 62.8 cm/sec Ao V2 max: 188.1 cm/sec MV A max jose: 71.0 cm/sec Ao max P.2 mmHg MV E/A: 0.88 Ao V2 mean: 129.2 cm/sec MV dec time: 0.23 sec Ao mean P.7 mmHg Ao V2 VTI: 36.8 cm JOHN(I,D): 2.3 cm2 JOHN(V,D): 2.3 cm2 LV V1 max P.0 mmHg SV(LVOT): 83.5 ml LV V1 mean P.2 mmHg LV V1 max: 132.2 cm/sec LV V1 mean: 81.7 cm/sec LV V1 VTI: 25.0 cm TR max jose: 190.0 cm/sec PA V2 max: 83.4 cm/sec TR max P.4 mmHg PA max P.8 mmHg PI end-d jose: 18.2 cm/sec Med Peak E' Jose: 7.1 cm/sec Med E/e': 8.8 Lat Peak E' Jose: 8.5 cm/sec Lat E/e': 7.4 Procedure A complete two-dimensional transthoracic echocardiogram was performed (2D, M-mode, Doppler and color flow Doppler). Left Ventricle The left ventricle is normal in size. Left ventricular systolic function is normal. Ejection Fraction = 65- 70%. No regional wall motion abnormalities noted. Right Ventricle The right ventricle is normal size. The right ventricular systolic function is normal. RV systolic TD I is 11 cm/s. Atria The left atrial size is normal. Right atrial size is normal. Mitral Valve The mitral valve is normal in structure and function. There is mild mitral regurgitation. Tricuspid Valve The tricuspid valve is normal in structure and function. There is mild tricuspid regurgitation. Right ventricular systolic pressure is normal. Aortic Valve The aortic valve is normal in structure and function. No aortic regurgitation is present. Pulmonic Valve The pulmonic valve is not well visualized. Great Vessels The aortic root is normal size. Pericardium/Pleura There is no pericardial effusion. Interpretation Summary The left ventricle is normal in size. Left ventricular systolic function is normal. No regional wall motion abnormalities noted. Ejection Fraction = 65-70%. The right ventricular systolic function is normal. The left atrial size is normal. Right atrial size is normal. There is mild mitral regurgitation. There is mild tricuspid regurgitation. Right ventricular systolic pressure is normal. There is no pericardial effusion. Previous study is not available for comparison Carlos Rhodes MD 01/27/2019 04:07 PM
[2019-01-27] MEDS ORDERED: PT OWN MED DRAWER 7, Y5N ONE ×2 (18:21→21:04)
[2019-01-27] MEDS: SUMAtriptan SUCCINATE 50 MG TABLET PO PRN (18:41)
[2019-01-27] MEDS: TOPIRAMATE 25 MG TABLET (FP) PO SCH (21:13)
--- NOTE | 2019-01-28 07:40 | PN ---
Progress Note, Physician History of Present Illness: c/o chest pain on exertion - Current Medication List Current Medications: Active Medications Acetaminophen (Tylenol -) 650 mg PO Q6H PRN PRN Reason: PAIN LEVEL 1-5 Last Admin: 01/26/19 23:10 Dose: 650 mg Aspirin (Asa -) 81 mg PO DAILY [facility] Last Admin: 01/27/19 09:30 Dose: 81 mg Ondansetron HCl (Zofran Injection) 4 mg IVPUSH Q6H PRN PRN Reason: NAUSEA AND/OR VOMITING Last Admin: 01/27/19 10:35 Dose: 4 mg Ranitidine HCl (Zantac -) 150 mg PO BID [facility] Last Admin: 01/27/19 21:13 Dose: 150 mg Sumatriptan Succinate (Imitrex -) 50 mg PO ONCE PRN PRN Reason: HEADACHE Last Admin: 01/27/19 18:41 Dose: 50 mg Topiramate (Topamax -) 25 mg PO BID [facility] Last Admin: 01/27/19 21:13 Dose: 25 mg - Objective Vital Signs: Vital Signs Temperature 97.5 F L 01/28/19 06:00 Pulse Rate 48 L 01/28/19 06:00 Respiratory Rate 20 01/28/19 06:00 Blood Pressure 125/54 L 01/28/19 06:00 O2 Sat by Pulse Oximetry (%) 98 01/27/19 22:00 Cardiovascular: Yes: Regular Rate and Rhythm Respiratory: Yes: Regular, CTA Bilaterally Gastrointestinal: Yes: Normal Bowel Sounds, Soft Breast(s): Yes: WNL Labs: CBC, BMP 01/25/19 06:00 01/25/19 06:00 INR, PTT INR 1.12 (0.83-1.09) H 01/24/19 17:10 Problem List - Problems (1) Atypical chest pain Assessment/Plan: CE NEGATIVE CARDIO CONSULT NOTED CTA noted stress test--if neg dc home Code(s): R07.89 - OTHER CHEST PAIN (2) Vertigo Assessment/Plan: MECLIZINE NEURO CONSULT Code(s): R42 - DIZZINESS AND GIDDINESS
[2019-01-28] MEDS: SUMAtriptan SUCCINATE 50 MG TABLET PO PRN ×3 (10:19→15:42)
[2019-01-28] MEDS ORDERED: REGADENOSON 0.4 MG/5 ML PRE-FILLED SYRINGE IVPUSH ONE ×2 (11:58→13:15)
[2019-01-28] MEDS ORDERED: PT OWN MED DRAWER 7, Y5N ONE (13:16)
[2019-01-28] MEDS: TOPIRAMATE 25 MG TABLET (FP) PO SCH (13:17)
[2019-01-28] MEDS: RANITIDINE HCL 150 MG TABLET (FP) PO SCH (13:17)
[2019-01-28] MEDS: ASPIRIN 81 MG CHEWABLE TABLETS PO SCH (13:17)
[2019-01-28 14:36] VITALS: BP 130/75; PULSE 67; TEMP 97.4
[2019-01-28] MEDS ORDERED: METOCLOPRAMIDE HCL INJECTION 10 MG/2 ML VIAL IVPUSH PRN (15:39)
[2019-01-28] MEDS: ONDANSETRON 4 MG/2 ML VIAL IVPUSH PRN (15:41)
--- NOTE | 2019-01-28 15:47 | PN ---
Progress Note (short form) - Note Progress Note: NEUROLOGY FOLLOW UP: Events reviewed and discussed with RN. Pt reports woke up without headache, but was NPO for stress test and returned with headache, nausea and vomiting. Relief of headache after 2 doses of sumatriptan 50 mg. Notes headaches are worse after skipped meals. LAVINIA: Normal Exam. 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 Suggest: IV fluids and monitor lytes Continue topiramate 25 mg BID x 1 week then 50 mg BID Increase sumatriptan to 100 mg prn, may repeat in 2 hours Change zofran to reglan 10 mg IVP q8H prn as this may have anti- migraine effects as well. Thank you very much, Callum Zarate MD
[2019-01-29] MEDS ORDERED: SUMAtriptan SUCCINATE 50 MG TABLET PO PRN (06:00)
== END 2019-01-28 17:45 | disposition home or self-care (01) ==
LOC: JER 13:34 → INTOOBSV 19:56 → JERBED 19:56 → J4S 01-26 00:47
PROVIDERS: ADMIT Family Medicine; ATTEND Family Medicine
PROC: 3E033GC Introduction of Other Therapeutic Substance into Peripheral Vein, Percutaneous Approach (ICD-10-PCS; principal; 2019-01-24)
PROC: 3E0337Z Introduction of Electrolytic and Water Balance Substance into Peripheral Vein, Percutaneous Approach (ICD-10-PCS; 2019-01-24)
DX: R07.89 Other chest pain (principal); R42 Dizziness and giddiness; G44.52 New daily persistent headache (NDPH)
CPT/HCPCS: 36415; 70450-TC; 71046-TC-FY; 71275-TC; 78452-TC; 80048; 80053; 81003; 82550; 82607; 83735; 84100; 84443; 84484; 84703; 85025; 85379; 85610; 86618; 87086; 93005; 93010; 93017; 93306-TC; 96365; 96372; 96375; 96376; 99285-25; A9502; G0378; J2785

== ENCOUNTER 2019-02-07 11:18 | Emergency (ER) | payer OTHER ==
[2019-02-07 11:41] VITALS: BMI 33.6
[2019-02-07] MEDS ORDERED: SODIUM CHLORIDE 1,000 ML IV STA ×2 (13:04→20:42)
[2019-02-07] MEDS ORDERED: METOCLOPRAMIDE HCL INJECTION 10 MG/2 ML VIAL IVPB ONE (13:04)
[2019-02-07] MEDS ORDERED: KETOROLAC TROMETHAMINE 30 MG/1 ML VIAL IVPUSH ONE (13:04)
[2019-02-07] MEDS ORDERED: METOCLOPRAMIDE HCL INJECTION 10 MG/2 ML VIAL ONE (13:24)
[2019-02-07] MEDS ORDERED: KETOROLAC TROMETHAMINE 30 MG/1 ML VIAL ONE (13:24)
[2019-02-07 13:32] LABS: BASO % 0.5 % (0-2.0); EOS % 0.1 % (0-4.5); HEMATOCRIT 47.2 % (32.4-45.2); HEMOGLOBIN 15.9 GM/dL (10.7-15.3); LYMPH % 22.3 % (8-40); MCHC 33.7 g/dl (32.0-36.0); MEAN PLT VOLUME 8.2 fl (7.5-11.1); MONO % 4.7 % (3.8-10.2); NEUT % 72.4 % (42.8-82.8); PLATELET COUNT 240 K/MM3 (134-434); RDW 13.2 % (11.6-15.6); WHITE BLOOD COUNT 5.8 K/mm3 (4.0-10.0)
--- NOTE | 2019-02-07 13:49 | PDOC ---
History of Present Illness - General Chief Complaint: Pain Stated Complaint: ABD.PAIN /HEADACHE Time Seen by Provider: 02/07/19 12:13 History Source: Patient Exam Limitations: No Limitations - History of Present Illness Initial Comments: 02/07/19 13:04 53-year-old female presents to ED with complaints of frontal throbbing headache despite taking Topamax and burning sensation to her epigastric area. Patient states was admitted here a few weeks ago for chest pain and saw a neurologist for the headaches who recommended Topamax. Patient states has an appointment with him next Sunday but since symptoms continued she decided come to the ER today. Patient denies fever, chills, dizziness despite history of vertigo visual changes, neck pain, chest pain shortness of breath or cough. Timing/Duration: other (2 days) Severity: moderate Associated Symptoms: reports: headaches, other Past History - Travel Traveled outside of the country in the last 30 days: No Close contact w/someone who was outside of country & ill: No - Past Medical History Allergies/Adverse Reactions: Allergies Allergy/AdvReac Type Severity Reaction Status Date / Time No Known Allergies Allergy Verified 02/07/19 11:40 Home Medications: Ambulatory Orders Acetaminophen [Tylenol .Regular Strength -] 650 mg PO Q6H PRN tablet 01/27/19 Aspirin [ASA -] 81 mg PO DAILY tab.chew 01/27/19 Ranitidine [Zantac -] 150 mg PO BID #60 tablet 01/27/19 Topiramate [Topamax -] 25 mg PO BID #60 tablet 01/27/19 COPD: No GI Disorders: Yes (gastritis) Disorders: No Other medical history: vertigo,migranes - Surgical History Cardiac Surgery: No Lung Surgery: No - Immunization History Immunization Up to Date: No - Suicide/Smoking/Psychosocial Hx Smoking History: Never smoked Have you smoked in the past 12 months: No Information on smoking cessation initiated: No Hx Alcohol Use: No Drug/Substance Use Hx: No Patient Lives Alone: No Lives with/in: spouse/SO Review of Systems - Review of Systems Able to Perform ROS?: Yes Constitutional: No: Symptoms Reported HEENTM: No: Symptoms Reported Respiratory: No: Symptoms reported Cardiac (ROS): No: Symptoms Reported ABD/GI: Yes: Indigestion : No: Symptoms Reported Musculoskeletal: No: Symptoms Reported Integumentary: No: Symptoms Reported Neurological: Yes: Headache, Tingling (toes yesterday). No: Numbness, Weakness , Dizziness Endocrine: No: Symptoms Reported Hematologic/Lymphatic: No: Symptoms Reported *Physical Exam - Vital Signs Last Vital Signs Temp Pulse Resp BP Pulse Ox 98.2 F 82 18 143/80 99 02/07/19 11:38 02/07/19 11:38 02/07/19 11:38 02/07/19 11:38 02/07/19 11:38 - Physical Exam General Appearance: Yes: Nourished, Appropriately Dressed. No: Apparent Distress HEENT: positive: EOMI, ARUN, TMs Normal, Pharynx Normal. negative: Pale Conjunctivae Neck: positive: Normal Thyroid, Supple Respiratory/Chest: positive: Lungs Clear, Normal Breath Sounds. negative: Respiratory Distress, Accessory Muscle Use Cardiovascular: positive: Regular Rhythm, Regular Rate. negative: Murmur Gastrointestinal/Abdominal: positive: Soft, Tenderness (mild epigastric) Musculoskeletal: negative: CVA Tenderness Extremity: positive: Normal Capillary Refill Integumentary: positive: Normal Color, Warm, Moist Neurologic: positive: Motor Strength 5/5 (ambulatory) ED Treatment Course - LABORATORY CBC & Chemistry Diagram: 02/07/19 13:12 02/07/19 13:04 - ADDITIONAL ORDERS Additional order review: 02/07/19 13:12 RBC 5.30 H MCV 89.0 MCHC 33.7 RDW 13.2 MPV 8.2 Neutrophils % 72.4 D Lymphocytes % 22.3 D Monocytes % 4.7 Eosinophils % 0.1 Basophils % 0.5 - Medications Given in the ED: ED Medications Discontinued Medications Generic Name Dose Route Start Last Admin Trade Name Freq PRN Reason Stop Dose Admin Ketorolac Tromethamine 30 mg 02/07/19 13:04 02/07/19 13:42 Toradol Injection - IVPUSH 02/07/19 13:05 30 mg ONCE ONE Administration Metoclopramide HCl 10 mg 02/07/19 13:04 02/07/19 13:42 Reglan Injection - IVPB 02/07/19 13:05 10 mg ONCE ONE Administration Medical Decision Making - Medical Decision Making 02/07/19 13:00 Chief complaint frontal throbbing headache for the past 2 days unrelieved with Topamax 25 mg. Patient also complaining of epigastric burning despite taking Zantac as prescribed recently. Patient states yesterday had tingling to the toes which resolved within minutes after walking around Exam: No acute findings vital signs stable no abdominal tenderness Plan labs, fluids, Reglan and Toradol ordered *DC/Admit/Observation/Transfer - Referrals Referrals: Jennifer Gibson [Primary Care Provider] - - Patient Instructions - Post Discharge Activity
[2019-02-07 14:00] LABS: ALBUMIN 4.8 g/dl (3.4-5.0); BILIRUBIN,TOTAL 0.3 mg/dL (0.2-1); CALCIUM 9.7 mg/dL (8.5-10.1); CREATININE 0.6 mg/dL (0.55-1.3); POTASSIUM 3.8 mmol/L (3.5-5.1); TOT PROT 8.5 g/dl (6.4-8.2)
[2019-02-07 16:41] LABS: URINE APPEARANCE TURBID; URINE BILIRUBIN NEGATIVE (NEGATIVE); URINE COLOR YELLOW; URINE GLUCOSE (UA) NEGATIVE (NEGATIVE); URINE KETONE NEGATIVE (NEGATIVE); URINE LEUK ESTERASE NEGATIVE (NEGATIVE); URINE NITRITE NEGATIVE (NEGATIVE); URINE PROTEIN NEGATIVE (NEGATIVE); URINE UROBILINOGEN 0.2 mg/dL (0.2-1.0)
--- NOTE | 2019-02-07 20:16 | PDOC ---
*Physical Exam - Vital Signs Last Vital Signs Temp Pulse Resp BP Pulse Ox 98.8 F 69 18 116/52 L 98 02/07/19 18:46 02/07/19 18:46 02/07/19 18:46 02/07/19 18:46 02/07/19 18:46 - Physical Exam General Appearance: Yes: Nourished, Appropriately Dressed, Apparent Distress Gastrointestinal/Abdominal: positive: Normal Bowel Sounds, Flat, Soft. negative : Tender ED Treatment Course - LABORATORY CBC & Chemistry Diagram: 02/07/19 13:12 02/07/19 13:04 - ADDITIONAL ORDERS Additional order review: Laboratory Results 02/07/19 02/07/19 16:22 13:04 Sodium 136 Potassium 3.8 Chloride 106 Carbon Dioxide 26 Anion Gap 5 L BUN 13 Creatinine 0.6 Est GFR (CKD-EPI)AfAm 122.32 Est GFR (CKD-EPI)NonAf 105.54 Random Glucose 109 H Calcium 9.7 Total Bilirubin 0.3 AST 22 ALT 49 Alkaline Phosphatase 78 Total Protein 8.5 H Albumin 4.8 Urine Color Yellow Urine Appearance Turbid Urine pH 8.0 Ur Specific [place] 1.012 Urine Protein Negative Urine Glucose (UA) Negative Urine Ketones Negative Urine Blood Negative Urine Nitrite Negative Urine Bilirubin Negative Urine Urobilinogen 0.2 Ur Leukocyte Esterase Negative 02/07/19 13:12 RBC 5.30 H MCV 89.0 MCHC 33.7 RDW 13.2 MPV 8.2 Neutrophils % 72.4 D Lymphocytes % 22.3 D Monocytes % 4.7 Eosinophils % 0.1 Basophils % 0.5 - Medications Given in the ED: ED Medications Discontinued Medications Generic Name Dose Route Start Last Admin Trade Name Calebq PRN Reason Stop Dose Admin Sodium Chloride 1,000 mls @ 1,000 mls/hr 02/07/19 13:04 02/07/19 13:41 Normal Saline - IV 02/07/19 14:03 1,000 mls/hr ASDIR STA Administration Ketorolac Tromethamine 30 mg 02/07/19 13:04 02/07/19 13:42 Toradol Injection - IVPUSH 02/07/19 13:05 30 mg ONCE ONE Administration Metoclopramide HCl 10 mg 02/07/19 13:04 02/07/19 13:42 Reglan Injection - IVPB 02/07/19 13:05 10 mg ONCE ONE Administration Medical Decision Making - Medical Decision Making 02/07/19 20:16 Sign out received from ASIA Lamar. Pt pending re-evaluation. 02/07/19 21:46 Pt was complaining of epigastric pain, labs WNL, suspect GERD Mylanta relieved her pain EKG: NSR, 60BPM, Normal intervals/axis, no ST-T wave changes Headache relieved with tylenol DC home with neuro follow up I discussed the physical exam findings, ancillary test results and final diagnoses with the patient. I answered all of the patient's questions. The patient was satisfied with the care received and felt comfortable with the discharge plan and treatment plan. The Patient agrees to follow up with the primary care physician/specialist within 24-72 hours. Return precautions were given. *DC/Admit/Observation/Transfer Diagnosis at time of Disposition: Headache Qualifiers: Headache type: unspecified Headache chronicity pattern: acute headache Intractability: not intractable Qualified Code(s): R51 - Headache Abdominal pain Qualifiers: Abdominal location: epigastric Qualified Code(s): R10.13 - Epigastric pain - Discharge Dispostion Disposition: HOME Condition at time of disposition: Stable Decision to Admit order: No - Prescriptions Prescriptions: Acetaminophen [Tylenol] 650 mg PO Q6H #42 tablet Mag Hydrox/Al Hydrox/Simeth [Mylanta *Suspension*] 30 ml PO Q6H #1 bottle - Referrals Referrals: Jennifer Gibson [Primary Care Provider] - Callum Zarate MD [Staff Physician] - - Patient Instructions Printed Discharge Instructions: DI for Gastroesophageal Reflux Disease (GERD), DI for Headache Additional Instructions: You were evaluated for your headache and abdominal pain today Your lab work and EKG was normal Take your Topamax as prescribed You may take Tylenol 650 mg every 4 hours as needed for pain Take the mylanta every 8 hours as needed for stomach pain Follow up with your primary care doctor this week. Keep your appointment with your neurologist as scheduled Return to the ER for any new or worsening symptoms Usted fue evaluado por whelan dolor de john y dolor abdominal hoy Tu trabajo de laboratorio y EKG fue normal Maalaea whelan Topamax segn lo prescrito Puede august Tylenol 650 mg cada 4 horas segn sea necesario para el dolor. Maalaea la mylanta cada 8 horas segn sea necesario para el dolor de estmago. Perfecto un seguimiento con whelan mdico de atencin primaria esta semana. Mantenga whelan bari con whelan neurlogo segn lo programado Regrese a la dolly de emergencias para detectar cualquier sntoma nuevo o que empeore. Print Language: ALBANIAN - Post Discharge Activity
[2019-02-07] MEDS ORDERED: ACETAMINOPHEN 1000 MG/100 ML VIAL (NON FORMULARY) IVPB ONE (20:42)
[2019-02-07] MEDS ORDERED: MAG HYDROX/AL HYDROX/SIMETH -MYLANTA- ORAL SUSPENSION PO ONE (20:42)
[2019-02-07] MEDS ORDERED: MAG HYDROX/AL HYDROX/SIMETH 30 ML UNIT-DOSE CUP ONE (20:50)
[2019-02-07] MEDS ORDERED: ACETAMINOPHEN INJECTION 100 ML IVPB ONE (20:50)
[2019-02-07 22:25] VITALS: BP 143/62; PULSE 64; TEMP 98.6
--- NOTE | 2019-02-08 11:41 | EKG ---
Test Reason : Blood Pressure : / mmHG Vent. Rate : 060 BPM Atrial Rate : 060 BPM P-R Int : 148 ms QRS Dur : 110 ms QT Int : 452 ms P-R-T Axes : 038 016 075 degrees QTc Int : 452 ms NORMAL SINUS RHYTHM NORMAL ECG WHEN COMPARED WITH ECG OF 24-JAN-2019 18:54, NO SIGNIFICANT CHANGE WAS FOUND Confirmed by ISHMAEL RECIO MD ([id number]) on 02/08/2019 11:41:23 AM Referred By: Confirmed By:ISHMAEL RECIO MD
== END 2019-02-07 22:25 | disposition home or self-care (01) ==
LOC: JER 11:18
PROC: 3E0337Z Introduction of Electrolytic and Water Balance Substance into Peripheral Vein, Percutaneous Approach (ICD-10-PCS; principal; 2019-02-07)
PROC: 3E0333Z Introduction of Anti-inflammatory into Peripheral Vein, Percutaneous Approach (ICD-10-PCS; 2019-02-07)
PROC: 3E033GC Introduction of Other Therapeutic Substance into Peripheral Vein, Percutaneous Approach (ICD-10-PCS; 2019-02-07)
DX: R51 Headache (principal); R10.13 Epigastric pain
CPT/HCPCS: 36415; 80053; 81003; 83690; 85025; 93005; 93010; 96361; 96374; 96375; 99285-25; J0131; J7030

== ENCOUNTER 2022-11-19 21:38 | Emergency (ER) | payer OTHER ==
[2022-11-19 21:48] VITALS: RESP 16; TEMP 98.5; BMI 27.1
[2022-11-19] MEDS ORDERED: KETOROLAC TROMETHAMINE 15 MG/ML VIAL IM ONE (23:45)
[2022-11-19] MEDS ORDERED: KETOROLAC TROMETHAMINE 15 MG/ML VIAL ONE (23:53)
[2022-11-20] MEDS ORDERED: LIDOCAINE 5% TOPICAL PATCH TP ONE (00:09)
[2022-11-20] MEDS ORDERED: CYCLOBENZAPRINE HCL 10 MG TABLET (FP) PO ONE (00:10)
[2022-11-20] MEDS ORDERED: LIDOCAINE 5% TOPICAL PATCH ONE (00:24)
[2022-11-20] MEDS ORDERED: CYCLOBENZAPRINE HCL 10 MG TABLET (FP) ONE (00:24)
[2022-11-20 00:41] LABS: BASO % 0.5 % (0-2.0); EOS % 0.9 % (0-4.5); HEMATOCRIT 39.3 % (32.4-45.2); HEMOGLOBIN 13.7 GM/dL (10.7-15.3); LYMPH % 31.1 % (8-40); MCH 30.9 pg (25.7-33.7); MCHC 34.7 g/dl (32.0-36.0); MEAN PLT VOLUME 7.5 fl (7.5-11.1); MONO % 8.8 % (3.8-10.2); NEUT % 58.7 % (42.8-82.8); PLATELET COUNT 220 10^3/uL (134-434); RBC 4.42 M/mm3 (3.60-5.2); RDW 13.2 % (11.6-15.6); WHITE BLOOD COUNT 5.7 K/mm3 (4.0-10.0)
[2022-11-20 01:02] LABS: CALCIUM 9.2 mg/dL (8.5-10.1)
[2022-11-20 01:03] LABS: ALBUMIN 4.2 g/dl (3.4-5.0); BLOOD UREA NITROGEN 13.9 mg/dL (7-18)
[2022-11-20 01:06] LABS: CREATININE 0.6 mg/dL (0.55-1.3)
[2022-11-20 01:07] LABS: TOT PROT 7.4 g/dl (6.4-8.2)
[2022-11-20 01:08] LABS: BILIRUBIN,TOTAL 0.2 mg/dL (0.2-1)
[2022-11-20 03:39] VITALS: BP 144/75; PULSE 78
[2022-11-20] MEDS ORDERED: LIDOCAINE PATCH REMOVAL MC SCH (22:00)
== END 2022-11-20 03:39 | disposition home or self-care (01) ==
LOC: JER 21:38
PROC: 3E023GC Introduction of Other Therapeutic Substance into Muscle, Percutaneous Approach (ICD-10-PCS; principal; 2022-11-19)
DX: M54.50 Low back pain, unspecified (principal)
CPT/HCPCS: 36415; 71045-TC-FY; 72070-TC-FY; 72100-TC-FY; 80053; 84484; 85025; 93005; 93010; 99285-25

== ENCOUNTER → 2023-01-10 | Day surgery (SDC) | payer OTHER | END | disposition home or self-care (01) | LOC: FMAMMOTONE 11:10 | PROVIDERS: ATTEND Surgery | PROC: 0HBT3ZX Excision of Right Breast, Percutaneous Approach, Diagnostic (ICD-10-PCS; principal; 2023-01-10) | DX: N60.31 Fibrosclerosis of right breast (principal); N64.89 Other specified disorders of breast; R92.8 Other abnormal and inconclusive findings on diagnostic imaging of breast | CPT/HCPCS: 19081; 76098-TC-FY; 87899; 88305-TC; A4648 ==